=== PATIENT | female | born 1950 | race Caucasian/White ===

== ENCOUNTER 2017-02-06 20:17 | Emergency (ER) | payer MEDICARE, OTHER ==
[2017-02-06] MEDS ORDERED: hydrOXYzine HCL 50 MG/ML VIAL IM ONE (20:57)
--- NOTE | 2017-02-06 21:21 | ED Physician Documentation ---
General Adult - HISTORIAN Historian: patient - HPI Stated Complaint: cp Chief Complaint: General Adult Additional Information: Precordial chest pain began at 1600 today. [place] like general pressure, with occasional muscle spasms. Sometimes would go to back. 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 No pqalpitations, SOB, diaphoresis. Usually warm bath and sitting quietly takes care of the pain. - ROS CONST: no problems - PAST HX Past History: other (diverticulitis, bowel obstruction) Allergies/Adverse Reactions: Allergies Allergy/AdvReac Type Severity Reaction Status Date / Time No Known Allergies Allergy Verified 02/06/17 20:53 Home Medications: Ambulatory Orders Medication Instructions Recorded Levothyroxine Sodium [Synthroid] 75 mcg PO D 02/06/17 - SOCIAL HX Smoking History: cigarettes (1 1/2 PPD x 35 years) - FAMILY HX Family History: No - VITAL SIGNS Vital Signs: Vital Signs Temp Pulse Resp BP Pulse Ox 97.6 F 70 16 139/90 95 02/06/17 20:17 02/06/17 20:57 02/06/17 20:17 02/06/17 20:17 02/06/17 20:57 - REVIEWED ASSESSMENTS Nursing Assessment Reviewed: Yes Vitals Reviewed: Yes Progress - Progress Progress: EKG: sinus rhythm, 81 BPM, no ischemic changes PA and lateral chest CLINICAL HISTORY: Chest pain TECHNIQUE: PA and lateral upright FINDINGS: Lung arauz are clear. There is no pleural effusion hilar mass or mediastinal mass. There is some aortic tortuosity. Bony thorax is unremarkable for age. IMPRESSION: No acute pulmonary disease Aortic tortuosity Electronically signed on Feb 06, 2017 9:43:27 PM CDT by: Antoni Amanda ncompletely gone at time of exam. Feels much better after vistaril. ED Results Lab/Radiology - Orders Orders: ED Orders Category Date Time Status Continuous EKG monitoring Q1H Care 02/06/17 20:57 Active Continuous Pulse Oximetry Q1H Care 02/06/17 20:57 Active IV [Place Saline Lock/IV] Now Care 02/06/17 20:30 Active CHEST 2 VIEW [CHEST P.A.&LAT 2 VIEWS] [RAD] Stat Exams 02/06/17 Ordered CBC/PLATELET/DIFF Routine Lab 02/06/17 Ordered CMP Routine Lab 02/06/17 Ordered TROPONIN I (cTnI) Stat Lab 02/06/17 Ordered URINALYSIS Routine Lab 02/06/17 Ordered hydrOXYzine HCL [Vistaril] Med 02/06/17 20:57 Discontinued 25 mg IM NOW ONE EKG WITH COMPARISON Stat Ther 02/06/17 Ordered General Adult Physical Exam - PHYSICAL EXAM GENERAL APPEARANCE: mild distress EENT: eye inspection normal, ENT inspection normal, pharynx normal NECK: normal inspection, supple RESPIRATORY: no resp distress, breath sounds normal CVS: reg rate & rhythm, heart sounds normal, no murmur ABDOMEN: soft, normal bowel sounds, non-tender RECTAL: deferred BACK: normal inspection, no CVA tenderness, other (no midline tenderness) SKIN: warm/dry, normal color EXTREMITIES: normal range of motion (gait), no evidence of injury NEURO: CN's nml as tested, motor nml, sensation nml, cognition normal Discharge Clincal Impression: Chest pain, non-cardiac Additional Instructions: See Fela Morelos in the next 7-10 days for consideration of further cardiac evaluation. Home Medications: Ambulatory Orders Levothyroxine Sodium [Synthroid] 75 mcg PO D 02/06/17 Condition: Good Disposition: 01 HOME, SELF-CARE Decision to Admit: NO Decision Time: 22:11
[2017-02-06 21:41] LABS: eGFR (African) > 60; eGFR (Non-African) > 60
[2017-02-06 21:42] LABS: BASOPHILS % 0.4 (0.0-1.5); EOSINOPHILS % 3.4 % (0.0-6.8); MEAN CORPUSCULAR HEMOGLOBIN 30.4 pg (28.0-34.0); MEAN CORPUSCULAR VOLUME 90.6 fl (80.0-100.0); MONOCYTES % 4.1 % (0.0-11.0); NEUTROPHILS # 4.1 # k/uL (1.4-7.7)
--- NOTE | 2017-02-06 22:42 | Diagnostic Imaging Report ---
MERNA RUBIN~ [facility] [id number] [facility] [address] [place], [place]. [address] ~ ~ ~ ~ Report Submission Date: Feb 06, 2017 9:43:27 PM CDT Patient ~ Study Name: FELICE BLOOD ~ Date: Feb 06, 2017 9:29:44 PM CDT ~ Modality Type: CR Gender: F ~ Description: CHEST : 52 ~ Institution: [facility] Physician: MERNA RUBIN ~ ~ ~ ~ PA and lateral chest CLINICAL HISTORY: ~ Chest pain TECHNIQUE: ~ PA and lateral upright FINDINGS: ~ Lung arauz are clear. ~There is no pleural effusion hilar mass or mediastinal mass. ~There is some aortic tortuosity. ~Bony thorax is unremarkable for age. IMPRESSION: ~ No acute pulmonary disease Aortic tortuosity ~ Electronically signed on Feb 06, 2017 9:43:27 PM CDT by: Antoni IZAGUIRRE
[2017-02-07 00:12] VITALS: BP 141/79
[2017-02-07 05:55] LABS: APPEARANCE,URINE CLEAR (CLEAR); COLOR,URINE YELLOW (YELLOW); OCCULT BLOOD,URINE NEGATIVE (NEGATIVE); PH URINE 5.5 (5.0 - 8.0); UROBILINOGEN URINE 0.2 Eu (0.2-1.0)
== END 2017-02-06 22:15 | disposition home or self-care (01) ==
LOC: ED 20:17
DX: R07.89 Other chest pain (principal)
CPT/HCPCS: 71020; 80053; 81002; 84484; 85025; 93005; J3410; 96372; 99283; S1016

== ENCOUNTER 2017-09-14 08:43 | Emergency (ER) | payer MEDICARE, OTHER ==
[2017-09-14] MEDS ORDERED: 0.9 % SODIUM CHLORIDE 500 ML IV ONE (09:09)
[2017-09-14] MEDS ORDERED: ONDANSETRON HCL/PF 4 MG/ 2ML VIAL IVP ONE (09:09)
[2017-09-14 09:27] LABS: BASOPHILS % 0.4 (0.0-1.5); EOSINOPHILS % 2.3 % (0.0-6.8); MEAN CORPUSCULAR HEMOGLOBIN 29.5 pg (28.0-34.0); MEAN CORPUSCULAR VOLUME 91.7 fl (80.0-100.0); MONOCYTES % 3.7 % (0.0-11.0); NEUTROPHILS # 6.7 # k/uL (1.4-7.7)
[2017-09-14] MEDS ORDERED: KETOROLAC TROMETHAMINE 30 MG/1ML VIAL IVP ONE (09:30)
[2017-09-14 09:37] LABS: eGFR (African) > 60; eGFR (Non-African) > 60
--- NOTE | 2017-09-14 10:10 | ED Physician Documentation ---
General Adult - HISTORIAN Historian: patient - HPI Stated Complaint: Right flank, right groin pain Chief Complaint: General Adult Onset: days ago (1) Timing: still present Severity: moderate Further Comments: yes (Pt is a 67 yo female with a hx kidney stones who presents with R flank pain. Pt has had nausea, and urinary frequency. Pt saw her pcp a few days ago and was dx'd presumptively with kidney stone and was rx' d Flomax. Pt has been unable to get to the pharmacy for meds, however. Pt also has hx diverticulitis and hx small bowel obstruction.) - ROS CONST: other (malaise) EYES/ENT: none CVS/RESP: none GI/: abdominal pain, problems urinating (frequency), nausea MS/SKIN/LYMPH: none - PAST HX Past History: other (diverticulitis, kidney stone, GERD, Thyroid d/o, insomnia, SBO) Surgeries/Procedures: hysterectomy Allergies/Adverse Reactions: Allergies Allergy/AdvReac Type Severity Reaction Status Date / Time No Known Allergies Allergy Verified 09/14/17 08:54 Home Medications: Ambulatory Orders Medication Instructions Recorded Levothyroxine Sodium [Synthroid] 75 mcg PO D 02/06/17 - SOCIAL HX Smoking History: other (smoking hx unknown) - FAMILY HX Family History: No - VITAL SIGNS Vital Signs: Vital Signs Temp Pulse Resp BP Pulse Ox 97.6 F 86 16 130/84 98 09/14/17 08:54 09/14/17 08:54 09/14/17 08:54 09/14/17 08:54 09/14/17 08:54 - REVIEWED ASSESSMENTS Nursing Assessment Reviewed: Yes Vitals Reviewed: Yes Progress - Progress Progress: CT abd/pelvis: Impression: 7.7 mm calcification just within the bladder at the right ureterovesicular junction. Significant dilation of the right ureter. Findings likely represent recently passed right ureterolithiasis. 1 L NS IVF Toradol 30 mg IV Zofran 4 mg IV Flomax 0.4 mg po. in ER. D/c instructions: Rx [place] (5/325). Take 1 or 2 tablets by mouth every 4 to 6 hrs as needed for pain. Rx Zofran 4 mg ODT. Take 1 by mouth every 8 hrs as needed for nausea/vomiting. Tamsulosin (Flomax) 0.4 mg. Take one daily for 5 days or until kidney stone passes. Rx Bactrim DS. Take one every 12 hrs for 5 days. Drink plenty of fluids. If stone does not pass in 48 to 72 hrs follow up with primary provider or with urologist. (May call . [facility]. and ask for Urology Clinic) ED Results Lab/Radiology - Lab Results Lab Results: Lab Results 09/14/17 09/14/17 09/14/17 09:20 09:20 09:20 WBC 9.40 K/ul K/ul (4.00-12.00) RBC 5.35 M/ul H M/ul (3.90-5.20) Hgb 15.8 g/dL g/dL (12.0-16.0) Hct 49.1 % H % (34.5-46.5) MCV 91.7 fl fl (80.0-100.0) MCH 29.5 pg pg (28.0-34.0) MCHC 32.2 g/dL g/dL (30.0-36.0) RDW 13.4 % % (11.3-14.3) Plt Count 249 K/mm3 K/mm3 (130-400) Neut % (Auto) 70.7 % % (39.0-79.0) Lymph % (Auto) 21.3 % % (16.0-50.0) [place] % (Auto) 3.7 % % (0.0-11.0) Eos % (Auto) 2.3 % % (0.0-6.8) Baso % (Auto) 0.4 (0.0-1.5) Neut # (Auto) 6.7 # k/uL # k/uL (1.4-7.7) Lymph # (Auto) 2.0 # k/uL # k/uL (0.6-4.0) [place] # (Auto) 0.3 # k/uL # k/uL (0.0-0.9) Eos # (Auto) 0.2 # k/uL # k/uL (0.0-0.6) Baso # (Auto) 0.0 # k/uL # k/uL (0.0-0.5) Reactive Lymphs % 1.6 % % (0.0-5.0) Reactive Lymphs # 0.2 # k/uL # k/uL (0.0-0.8) Sodium 136 mmol/L mmol/L (136-145) Potassium 4.2 mmol/L mmol/L (3.5-5.1) Chloride 100 mmol/L mmol/L (98-107) Carbon Dioxide 27 mmol/L mmol/L (22-30) BUN 14 mg/dL mg/dL (7-17) Creatinine 0.60 mg/dL mg/dL (0.52-1.04) Estimated Creat Clear 120 Est GFR ( Amer) > 60 (60 - ) Est GFR (Non-Af Amer) > 60 (60 - ) Glucose 111 mg/dL H mg/dL (74-106) Calcium 9.5 mg/dL mg/dL (8.4-10.2) Total Bilirubin 0.3 mg/dL mg/dL (0.2-1.3) AST 16 U/L U/L (15-46) ALT 30 U/L U/L (13-69) Alkaline Phosphatase 93 U/L U/L (38-126) Total Protein 7.6 g/dL g/dL (6.3-8.2) Albumin 4.2 g/dL g/dL (3.5-5.0) Lipase 56 U/L U/L (23-300) - Orders Orders: ED Orders Category Date Time Status Place IV Lock 1T Care 09/14/17 09:[address] ABD & PELVIS W/O CON Stat Exams 09/14/17 Ordered CBC/PLATELET/DIFF Routine Lab 09/14/17 09:20 Completed CMP Routine Lab 09/14/17 09:20 Completed LIPASE Stat Lab 09/14/17 09:20 Completed URINALYSIS Routine Lab 09/14/17 Ordered 0.9 % Sodium Chloride [Normal Saline] 500 ml Med 09/14/17 09:09 Discontinued IV NOW Ketorolac Tromethamine [Toradol] Med 09/14/17 09:30 Discontinued 30 mg IVP NOW ONE Ondansetron HCl/Pf [Zofran 4 mg/2 ml] Med 09/14/17 09:09 Discontinued 4 mg IVP NOW ONE General Adult Physical Exam - PHYSICAL EXAM GENERAL APPEARANCE: moderate distress EENT: pharynx normal NECK: normal inspection, supple RESPIRATORY: no resp distress, chest non-tender, breath sounds normal CVS: reg rate & rhythm, heart sounds normal ABDOMEN: soft, no organomegaly, normal bowel sounds BACK: normal inspection, CVA tenderness (R) SKIN: warm/dry, normal color EXTREMITIES: non-tender, normal range of motion, no evidence of injury NEURO: oriented X3, motor nml, sensation nml Discharge Clincal Impression: Kidney stone Referrals: Fela Morelos FNP [Primary Care Provider] - Condition: Stable Disposition: 01 HOME, SELF-CARE Decision to Admit: NO Decision Time: 10:16
[2017-09-14] MEDS ORDERED: TAMSULOSIN HCL 0.4 MG CAP.ER.24H PO ONE (10:11)
[2017-09-14 11:21] VITALS: BP 128/64
--- NOTE | 2017-09-14 15:01 | Diagnostic Imaging Report ---
CARLY NOONAN [facility] [address] [facility] [address] [place], [place]. [address] Report Submission Date: Sep 14, 2017 9:59:55 AM NUTRITION EDUCATOR Patient Study Name: FELICE BLOOD Date: Sep 14, 2017 9:25:38 AM NUTRITION EDUCATOR Modality Type: CT\SR Gender: F Description: CT ABD & PELVIS W/O CO : 52 Institution: [facility] Physician: CARLY NOONAN Examination: CT Abdomen/pelvis History: Right flank discomfort. Comparison exams: None available for direct review. Technique: CT Abdomen/pelvis without contrast protocol. Findings: Kidneys are symmetric in size. Right kidney has and axial orientation. 1 mm calyceal calcifications. No abnormal dilation of the left ureter in it's course through the abdomen and pelvis. No central calcification. Prominence of the right ureter as it courses towards the bladder. Just with in the bladder at the right ureterovesicular junction is a 7.7 mm calcification. Remainder of the bladder margin is without gross abnormality. Liver, spleen, adrenal glands, and pancreas are without irregularity given exam technique. Splenic granuloma. Gallstone layering within the gallbladder fundus. No adjacent inflammation. Abdominal aorta with mild peripheral atherosclerotic disease. No aneurysm. Bowel without contrast limiting evaluation. No evidence for acute mesenteric inflammation or free air. Stool throughout the large bowel limiting sensitivity. Appendix not visualized. Scattered sigmoid diverticula. No adjacent inflammation. 3 cm cyst involving the right adnexal region. Osseous structures demonstrate degenerative changes. Lung bases demonstrate parenchymal scarring. No effusion. Impression: 7.7 mm calcification just within the bladder at the right ureterovesicular junction. Significant dilation of the right ureter. Findings likely represent recently passed right ureterolithiasis. Bilateral nephrolithiasis. Gallstone. No adjacent inflammation. Sigmoid diverticulosis. No evidence for acute diverticulitis. 3 cm right adnexal cyst. Electronically signed on Sep 14, 2017 9:59:55 AM NUTRITION EDUCATOR by: Cedric IZAGUIRRE
[2017-09-14 18:16] LABS: APPEARANCE,URINE CLEAR (CLEAR); COLOR,URINE YELLOW (YELLOW); OCCULT BLOOD,URINE 2+ (NEGATIVE)
[2017-09-14 18:17] LABS: PH URINE 5.5 (5.0 - 8.0); UROBILINOGEN URINE 0.2 Eu (0.2-1.0)
== END 2017-09-14 10:50 | disposition home or self-care (01) ==
LOC: ED 08:43
DX: N20.0 Calculus of kidney (principal)
CPT/HCPCS: 74176; 80053; 81002; 83690; 85025; J1885; J2405; J7060; 96361; 96374; 96375; 99283; S1016

== ENCOUNTER 2018-07-20 15:14 | Emergency (ER) | payer MEDICARE, OTHER ==
[2018-07-20 15:29] VITALS: BP 155/94
--- NOTE | 2018-07-20 15:55 | ED Physician Documentation ---
Low Back Pain - HISTORIAN Historian: patient - HPI Stated Complaint: Lower back pain Chief Complaint: General Adult Additional Information: 2 day history of pain in the lower back area. No precipitating factor noted. Did mow her lawn yesterday with push welfare worker. Has been using Ibuprofen with some help. Patient has had sciatica in the past. Warm bath helps also. No numbness or weakness noted tot he lower extremity No UTI symptoms. History: back pain Where: home Severity: moderate Associated Symptoms: denies: fever, chills Further Comments: no - ROS CONST: no problems - PAST HX Past History: sciatica, other (kidney stone, valvolus) Surgeries/Procedures: hysterectomy Allergies/Adverse Reactions: Allergies Allergy/AdvReac Type Severity Reaction Status Date / Time No Known Allergies Allergy Verified 07/20/18 15:28 Home Medications: Ambulatory Orders Medication Instructions Recorded Levothyroxine Sodium [Synthroid] 75 mcg PO D 02/06/17 Meloxicam 15 mg PO D #30 tablet 07/20/18 - SOCIAL HX Smoking History: greater than 1 pack/day Alcohol Use: none Drug Use: none - FAMILY HX Family History: no significant history - VITAL SIGNS Vital Signs: Vital Signs Temp Pulse Resp BP Pulse Ox 98.3 F 78 17 155/94 97 07/20/18 16:30 07/20/18 16:30 07/20/18 16:30 07/20/18 16:30 07/20/18 16:30 - REVIEWED ASSESSMENTS Nursing Assessment Reviewed: Yes Vitals Reviewed: Yes ED Results Lab/Radiology - Orders Orders: ED Orders Category Date Time Status Ketorolac Tromethamine [Toradol] Med 07/20/18 16:10 Discontinued 60 mg IM NOW ONE Low Back Pain/Injury - Physical Exam General Appearance: no acute distress Resp/CVS: chest non-tender, breath sounds nml, heart sounds nml (..) Abdomen: non-tender, other (no CVA tenderness noted) Neuro/Psych: oriented x3, motor nml Skin: warm/dry, normal color Extremities: normal range of motion Discharge Clincal Impression: Sciatica of left side Prescriptions: Meloxicam 15 mg PO D #30 tablet Referrals: Fela Morelos FNP [Primary Care Provider] - 2 Days Additional Instructions: Continue with warm compress to the sciatic area. Take Mobic 15mg once a day. Do exercises as instructed. Condition: Stable Disposition: 01 HOME, SELF-CARE Decision to Admit: NO Date of Decison to Admit: 07/20/18 Decision Time: 16:10
[2018-07-20] MEDS: KETOROLAC TROMETHAMINE 60 MG/2 ML VIAL IM ONE (16:20)
== END 2018-07-20 16:30 | disposition home or self-care (01) ==
LOC: ED 15:14
DX: M54.32 Sciatica, left side (principal)
CPT/HCPCS: 96372; 99284; J1885